=== PATIENT | male | born 1965 | race Hispanic/Latino ===

== ENCOUNTER 2019-07-16 09:35 | Emergency (ER) | payer MEDICAID ==
--- NOTE | 2019-07-16 10:10 | Emergency Department Report ---
HPI - General Chief Complaint: Extremity Injury, Upper Time Seen by Provider: 07/16/19 09:49 - HPI HPI: Room 3 The patient is a 53-year-old male present with a chief complaint of right wrist and abdominal pain. The patient states approximate 4 to 5 days ago he noticed a "pimple" to the dorsum of his right wrist. The patient states over time the pimple enlarged and developed a central ulceration. Wound has surrounding erythema and pain. Patient denies active drainage. Patient denies history of fever. Patient also states for the past 4 to 5 days he has had intermittent sharp pain in the midepigastric right upper quadrant that worsens with meals. Patient admits to diarrhea but denies nausea/vomiting. Patient gives his pain a score 7-8/10 ED Past Medical Hx - Past Medical History Hx Hypertension: Yes Additional medical history: DIVERCULITIS - Surgical History Additional Surgical History: Partial colectomy secondary to diverticulitis. Colostomy with reversal. Vasectomy. T& A - Family History Family history: no significant - Social History Smoking Status: Current Every Day Smoker (1/5 pack/day) Substance Use Type: None (Denies illicit drug use), Alcohol (Rarely) - Medications Home Medications: Home Medications Medication Instructions Recorded Confirmed Last Taken Type Ciprofloxacin HCl [Ciprofloxacin 500 mg PO Q12HR #20 tab 07/16/19 Unknown Rx TAB] HYDROcodone/APAP 5-325 [[place] 1 - 2 each PO Q6HR PRN #14 tablet 07/16/19 Unknown Rx 5/325] Ibuprofen [Motrin 800 MG tab] 800 mg PO Q8HR PRN #20 tablet 07/16/19 Unknown Rx Sulfamethoxazole/Trimethoprim 1 each PO BID #20 tablet 07/16/19 Unknown Rx [Bactrim DS TAB] ED Review of Systems ROS: Stated complaint: RT ARM SWOLLEN Other details as noted in HPI Constitutional: denies: fever Eyes: denies: eye pain ENT: denies: throat pain Respiratory: no symptoms reported Cardiovascular: denies: chest pain Endocrine: no symptoms reported Gastrointestinal: abdominal pain, diarrhea. denies: nausea, vomiting Genitourinary: denies: dysuria Musculoskeletal: myalgia Skin: lesions, change in color Physical Exam - Physical Exam Vital Signs: Vital Signs 07/16/19 09:42 Temperature 97.9 F Pulse Rate 85 Respiratory 20 Rate Blood Pressure 164/109 O2 Sat by Pulse 99 Oximetry Physical Exam: GENERAL: The patient is well-developed well-nourished male sitting on stretcher not appearing to be in acute distress. [] HEENT: Normocephalic. Atraumatic. Extraocular motions are intact. Patient has moist mucous membranes. NECK: Supple. Trachea midline CHEST/LUNGS: There is no respiratory distress noted. HEART/CARDIOVASCULAR: Regular. There is no tachycardia. 2+ right radial pulse ABDOMEN: Abdomen is soft, with mild tenderness to palpation in the midepigastric region. There is no rebound or guarding. Patient has normal bowel sounds. There is no abdominal distention. SKIN: There is no rash. There is no edema. There is no diaphoresis. NEURO: The patient is awake, alert, and oriented. The patient is cooperative. The patient has normal speech MUSCULOSKELETAL: There is no evidence of acute injury. ED Course Vital Signs 07/16/19 09:42 Temperature 97.9 F Pulse Rate 85 Respiratory 20 Rate Blood Pressure 164/109 O2 Sat by Pulse 99 Oximetry - I & D Right Wrist Type of Procedure: Simple Site: Right wrist Blade Size: 11 I & D Procedure: betadine prep Progress: Wound was anesthetized with lidocaine 1% with epinephrine approximately 8 mL. Approximately 1 mL purulent discharge expressed. Wound irrigated with normal saline 500 mils. Wound packed with 1/4 inch iodoform gauze. Patient tolerated well. ED Medical Decision Making - Lab Data Result diagrams: 07/16/19 10:30 07/16/19 10:30 Laboratory Tests 07/16/19 07/16/19 10:30 10:30 WBC 14.1 H RBC 4.89 Hgb 15.3 H Hct 45.8 H MCV 94 MCH 31 MCHC 33 RDW 13.4 Plt Count 207 Lymph % (Auto) 11.7 L [place] % (Auto) 8.1 H Eos % (Auto) 1.8 Baso % (Auto) 0.4 Lymph # 1.6 [place] # 1.1 H Eos # 0.2 Baso # 0.1 Seg Neutrophils % 78.0 H Seg Neutrophils # 11.0 H Sodium 139 Potassium 5.0 Chloride 102.2 Carbon Dioxide 25 Anion Gap 17 BUN 20 Creatinine 1.0 Estimated GFR > 60 BUN/Creatinine Ratio 20 Glucose 85 Calcium 9.1 Total Bilirubin 0.40 AST 19 ALT 21 Alkaline Phosphatase 85 Total Protein 6.2 L Albumin 3.8 L Albumin/Globulin Ratio 1.6 Lipase 35 - Radiology Data Radiology results: report reviewed (CT abdomen pelvis), image reviewed (CT abdomen pelvis) Findings [facility] [address] [place] [address] Cat Scan Report Signed Patient: MAYCOL CAPPS MR#: [id number] : 1965 Acct:[id number] Age/Sex: 53 / M ADM Date: 07/16/19 Loc: ED Attending Dr: Ordering Physician: CRISTIANO DAVALOS MD Date of Service: 07/16/19 Procedure(s): CT abdomen pelvis w con Accession Number(s): [id number] cc: CRISTIANO DAVALOS MD CT of the abdomen and pelvis with contrast INDICATION: Epigastric pain and diarrhea COMPARISON: None FINDINGS: There is calcified right lower lobe granuloma. Gallbladder has been removed. No biliary tree dilation. The liver, spleen, pancreas, adrenal glands and kidneys are unremarkable with small low density renal lesions probably cysts. No fluid or adenopathy in the upper abdomen. Ventral hernias are seen containing fat as well as a small amount transverse colon without obstruction. Fat-containing umbilical hernia is seen as well. CT of the pelvis shows large amount stool in colon suggesting constipation. No fecal impaction is seen. Bladder wall may be thickened. The prostate is mildly enlarged. No pelvic or inguinal adenopathy. There is moderate sigmoid diverticulosis without diverticulitis. No colitis or enteritis seen is seen. There is no bowel obstruction. No significant skeletal lesion. IMPRESSION: Incidental findings as described but no inflammatory process or bowel obstruction. Automated exposure control was utilized to diminish radiation dose. Signer Name: Noe Devries MD Signed: 07/16/2019 12:56 PM Workstation Name: [id number] Transcribed By: VINNIE Dictated By: Noe Devries MD Electronically Authenticated By: Noe Devries MD Signed Date/Time: 07/16/19 1256 DD/ 1249 TD/TT: - Medical Decision Making Labs and CT scan discussed with patient. - Differential Diagnosis Wrist abscess, gastritis, pancreatitis, Critical care attestation.: If time is entered above; I have spent that time in minutes in the direct care of this critically ill patient, excluding procedure time. ED Disposition Clinical Impression: Abscess of skin of right wrist, Abdominal pain, Ventral hernia Disposition: TO HOME OR SELFCARE Is pt being admited?: No Does the pt Need Aspirin: No Condition: Stable Instructions: Abscess (ED) Additional Instructions: Return to the emergency department should you develop worsening symptoms, inability to tolerate food or liquids, high fever or any other concerns Prescriptions: Sulfamethoxazole/Trimethoprim [Bactrim DS TAB] 1 each PO BID #20 tablet Ciprofloxacin HCl [Ciprofloxacin TAB] 500 mg PO Q12HR #20 tab Ibuprofen [Motrin 800 MG tab] 800 mg PO Q8HR PRN #20 tablet PRN Reason: Pain, Moderate (4-6) HYDROcodone/APAP 5-325 [[place] 5/325] 1 - 2 each PO Q6HR PRN #14 tablet PRN Reason: Pain Referrals: [facility] [Provider Group] - 3-5 Days Time of Disposition: 13:30
[2019-07-16] MEDS ORDERED: LIDOCAINE 1%/EPINEPHRINE 1:100,000 VIAL (20 ML) INFILTRATI ONE (10:20)
[2019-07-16] MEDS ORDERED: SODIUM CHLORIDE 0.9% IRR 500 ML BOTTLE IR ONE (10:51)
[2019-07-16] MEDS ORDERED: SODIUM CHLORIDE IRRI 500 ML 500 ML IR ONE (10:51)
[2019-07-16 11:14] LABS: Basophils # (Auto) 0.1 K/mm3 (0.0-0.1); Basophils % (Auto) 0.4 % (0.0-1.8); Eosinophils # (Auto) 0.2 K/mm3 (0.0-0.4); Eosinophils % (Auto) 1.8 % (0.0-4.3); Hematocrit 45.8 % (35.5-45.6); Hemoglobin 15.3 gm/dl (11.8-15.2); Lymphocytes # (Auto) 1.6 K/mm3 (1.2-5.4); Lymphocytes % (Auto) 11.7 % (13.4-35.0); Mean Corpuscular HGB Conc 33 % (32-34); Mean Corpuscular Volume 94 fl (84-94); Monocytes # (Auto) 1.1 K/mm3 (0.0-0.8); Monocytes % (Auto) 8.1 % (0.0-7.3); Platelet Count 207 K/mm3 (140-440); Red Blood Count 4.89 M/mm3 (3.65-5.03); Red Cell Distribution Width 13.4 % (13.2-15.2)
[2019-07-16 11:32] LABS: Alanine Aminotransferase 21 units/L (7-56); Albumin 3.8 g/dL (3.9-5); BUN/Creatinine Ratio 20; Blood Urea Nitrogen 20 mg/dL (9-20); Calcium 9.1 mg/dL (8.4-10.2); Hemolysis Index 13
[2019-07-16] MEDS ORDERED: KETOROLAC 30 MG/1 ML INJ IV ONE (12:14)
[2019-07-16] MEDS ORDERED: KETOROLAC 30 MG/1 ML INJ ONE (12:16)
[2019-07-16 12:37] VITALS: BP 156/105
--- NOTE | 2019-07-16 13:01 | Cat Scan Report ---
CT of the abdomen and pelvis with contrast INDICATION: Epigastric pain and diarrhea COMPARISON: None FINDINGS: There is calcified right lower lobe granuloma. Gallbladder has been removed. No biliary tali e dilation. The liver, spleen, pancreas, adrenal glands and kidneys are unremarkable with small low d ensity renal lesions probably cysts. No fluid or adenopathy in the upper abdomen. Ventral hernias are seen containing fat as well as a small amount transverse colon without obstruction. Fat-containing u mbilical hernia is seen as well. CT of the pelvis shows large amount stool in colon suggesting constipation. No fecal impaction is see n. Bladder wall may be thickened. The prostate is mildly enlarged. No pelvic or inguinal adenopathy. There is moderate sigmoid diverticulosis without diverticulitis. No colitis or enteritis seen is seen . There is no bowel obstruction. No significant skeletal lesion. IMPRESSION: Incidental findings as described but no inflammatory process or bowel obstruction. Automated exposure control was utilized to diminish radiation dose. Signer Name: Noe Devries MD Signed: 07/16/2019 12:56 PM Workstation Name: [id number]
== END 2019-07-16 14:16 | disposition home or self-care (01) ==
LOC: ED 09:35
DX: L02.413 Cutaneous abscess of right upper limb (principal); K43.9 Ventral hernia without obstruction or gangrene; I10 Essential (primary) hypertension; F17.210 Nicotine dependence, cigarettes, uncomplicated
CPT/HCPCS: 10060; 36415; 74177; 80053; 83690; 85025; 87040; 87116; 96374; 99284; J1885; Q9967; 82962; 87076; 87186

== ENCOUNTER 2019-07-18 15:36 | Emergency (ER) | payer MEDICAID ==
--- NOTE | 2019-07-18 15:57 | Event Note ---
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 Further treatment and workup at subsequent clinical providers discretion. Patient/guardian urged not to elope from the ED as their condition may be serious if not clinically assessed and managed. Initial orders include: acc dressing ad packing removal
[2019-07-18] MEDS ORDERED: HYDROcodone/ACETAMINOPHEN 5-325 MG TAB PO STA (21:26)
--- NOTE | 2019-07-18 21:43 | Emergency Department Report ---
- General Chief Complaint: Skin/Abscess/Foreign Body Stated Complaint: RT WRIST REDNESS Time Seen by Provider: 07/18/19 21:11 Source: patient Mode of arrival: Ambulatory Limitations: No Limitations - History of Present Illness Initial Comments: A 53-year-old male sent emerge department for evaluation of his wrist abscess which was drained about 3 days ago and packed with gauze he presents with the original bandaged seeking to have the wound reevaluated and likely pack ing removed reports having some still some moderate dull throbbing pain to the region and some minimal discharge. No fevers chills or sweats no nausea or vomiting no change in range of motion to his hand or wrist been taking some of the medication as prescribed. States that during a bowel movement also he thinks the medicines are marginal stool monitor some medication for warm removal. There is been no foreign travel no known contact with the coronavirus Place: home - Related Data Previous Rx's Medication Instructions Recorded Last Taken Type Ciprofloxacin HCl [Ciprofloxacin 500 mg PO Q12HR #20 tab 07/16/19 Unknown Rx TAB] HYDROcodone/APAP 5-325 [[place] 1 - 2 each PO Q6HR PRN #14 tablet 07/16/19 Unknown Rx 5/325] Ibuprofen [Motrin 800 MG tab] 800 mg PO Q8HR PRN #20 tablet 07/16/19 Unknown Rx Sulfamethoxazole/Trimethoprim 1 each PO BID #20 tablet 07/16/19 Unknown Rx [Bactrim DS TAB] Chlorhexidine Gluconate 5 ml TP BID #240 liquid 07/18/19 Unknown Rx [Antiseptic Skin Cleanser] Mebendazole (Nf) [Vermox Chew (Nf)] 100 mg PO DAILY #3 tab 07/18/19 Unknown Rx Mupirocin [Bactroban 2%] 1 applic TP TID #1 tube 07/18/19 Unknown Rx Allergies Allergy/AdvReac Type Severity Reaction Status Date / Time No Known Allergies Allergy Unverified 07/16/19 09:41 ED Review of Systems ROS: Stated complaint: RT WRIST REDNESS Other details as noted in HPI Comment: All other systems reviewed and negative ED Past Medical Hx - Past Medical History Previous Medical History?: Yes Hx Hypertension: Yes Additional medical history: DIVERCULITIS - Surgical History Additional Surgical History: Partial colectomy secondary to diverticulitis. Co lostomy with reversal. Vasectomy. T& A - Social History Smoking Status: Never Smoker Substance Use Type: None - Medications Home Medications: Home Medications Medication Instructions Recorded Confirmed Last Taken Type Ciprofloxacin HCl [Ciprofloxacin 500 mg PO Q12HR #20 tab 07/16/19 Unknown Rx TAB] HYDROcodone/APAP 5-325 [[place] 1 - 2 each PO Q6HR PRN #14 tablet 07/16/19 Unknown Rx 5/325] Ibuprofen [Motrin 800 MG tab] 800 mg PO Q8HR PRN #20 tablet 07/16/19 Unknown Rx Sulfamethoxazole/Trimethoprim 1 each PO BID #20 tablet 07/16/19 Unknown Rx [Bactrim DS TAB] Chlorhexidine Gluconate 5 ml TP BID #240 liquid 07/18/19 Unknown Rx [Antiseptic Skin Cleanser] Mebendazole (Nf) [Vermox Chew (Nf)] 100 mg PO DAILY #3 tab 07/18/19 Unknown Rx Mupirocin [Bactroban 2%] 1 applic TP TID #1 tube 07/18/19 Unknown Rx ED Physical Exam - General Limitations: No Limitations General appearance: alert, in no apparent distress - Head Head exam: Present: atraumatic, normocephalic - Eye Eye exam: Present: normal appearance - ENT ENT exam: Present: mucous membranes moist - Neck Neck exam: Present: normal inspection - Respiratory Respiratory exam: Present: normal lung sounds bilaterally. Absent: respiratory distress - Cardiovascular Cardiovascular Exam: Present: regular rate, normal rhythm. Absent: systolic murmur, diastolic murmur, rubs, gallop - GI/Abdominal GI/Abdominal exam: Present: soft, normal bowel sounds - Rectal Rectal exam: Present: deferred - Extremities Exam Extremities exam: Present: normal inspection, tenderness, normal capillary refill. Absent: calf tenderness - Expanded Upper Extremity Exam Right Forearm Wrist exam: Present: tenderness, swelling, erythema (Healing abscess with the packing already removed) Hand L/R Back: 1 - Site of the abscess. Was able to manipulate a small amount of pus wound was then cleaned with peroxide and water and redressed - Back Exam Back exam: Present: normal inspection - Neurological Exam Neurological exam: Present: alert, oriented X3, CN II-XII intact - Psychiatric Psychiatric exam: Present: normal affect, normal mood - Skin Skin exam: Present: warm, dry, intact, normal color. Absent: rash ED Course Vital Signs 07/18/19 07/18/19 07/18/19 15:57 21:46 22:16 Temperature 97.5 F L 97.8 F Pulse Rate 72 71 Respiratory 12 18 18 Rate Blood Pressure 127/74 Blood Pressure 164/102 [Left] O2 Sat by Pulse 97 98 Oximetry ED Medical Decision Making - Medical Decision Making 53-year-old male status post abscess to the with vision and drainage bandage was removed packing was already dislodged the wound was expressed which did yield a scant. Discharge. There is and there is some tenderness around the wound with expression as well. Wound was irrigated with copious saline and peroxide and redressed with antimicrobial bandage. Patient was also provided with a prescription for of Vermox Critical care attestation.: If time is entered above; I have spent that time in minutes in the direct care of this critically ill patient, excluding procedure time. ED Disposition Clinical Impression: Wound check, abscess, Worms in stool Disposition: DC-01 TO HOME OR SELFCARE Is pt being admited?: No Does the pt Need Aspirin: No Condition: Stable Instructions: Abscess (ED) Prescriptions: Chlorhexidine Gluconate [Antiseptic Skin Cleanser] 5 ml TP BID #240 liquid Mupirocin [Bactroban 2%] 1 applic TP TID #1 tube Mebendazole (Nf) [Vermox Chew (Nf)] 100 mg PO DAILY #3 tab Referrals: PRIMARY [facility]ARE, [Primary Care Provider] - 3-5 Days [facility] [Provider Group] - 3-5 Days
[2019-07-18 22:17] VITALS: BP 164/102
[2019-07-18] MEDS ORDERED: HYDROGEN PEROXIDE 118 ML SOLUTION TP ONE (22:20)
[2019-07-18] MEDS ORDERED: HYDROGEN PEROXIDE 118 ML SOLUTION ONE (22:21)
== END 2019-07-18 22:42 | disposition home or self-care (01) ==
LOC: ED 15:36
DX: L02.413 Cutaneous abscess of right upper limb (principal); B82.9 Intestinal parasitism, unspecified; I10 Essential (primary) hypertension; K57.90 Diverticulosis of intestine, part unspecified, without perforation or abscess without bleeding; Z79.1 Long term (current) use of non-steroidal anti-inflammatories (NSAID); Z79.2 Long term (current) use of antibiotics; Z79.899 Other long term (current) drug therapy; Z98.890 Other specified postprocedural states